=== PATIENT | male | born 1940 | race Caucasian/White ===

== ENCOUNTER → 2022-08-24 | Outpatient (CLI) | payer MEDICARE ==
--- NOTE | 2022-08-24 10:47 | FL ---
EXAMINATION TYPE: FL barium swallow DATE OF EXAM: 08/24/2022 10:32 AM COMPARISON: Chest radiograph from same day. CLINICAL INDICATION:Male, 81 years old with history of R221, R1310; TECHNIQUE: The procedure was explained and patient history elicited. All patient questions were ans wered prior to start of procedure. Multiple spot fluoroscopic images of the esophagus were obtained a fter the oral ingestion of effervescent crystals and liquid barium as the contrast agent. Fluoroscopic time:18 second Fluoroscopic images: 0 Radiographs taken: 60 DAP: 1150.71 FINDINGS: The esophagus demonstrates normal primary and secondary peristalsis. The esophageal mucosa is smooth without evidence of focal stricture, ulceration, or abnormal outpouching. No gastroesophageal reflux disease was identified. Tertiary contractions are present. Evaluation of the oropharynx demonstrate m ild retention of the vallecular retention and mild piriform sinus retention. IMPRESSION: 1. 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 2. Patient did not have symptoms during exam. 3. Mild vallecular and piriform sinus retention, consider evaluation with speech pathologist modified barium swallow.
--- NOTE | 2022-08-24 15:05 | CT ---
EXAMINATION TYPE: CT soft tissue neck w con DATE OF EXAM: 08/24/2022 COMPARISON: None HISTORY: Swelling, mass lump in neck CT DLP: 365.10 mGycm Automated exposure control for dose reduction was used. Contrast: None Technique: Axial images 3 mm thick sections. Reconstructed images in the coronal and sagittal plane. FINDINGS: Limited CT sections are obtained through the lung apices which appear clear. The subglottic airway ap pears normal. Thyroid appears atrophic. Vocal cord level is symmetrical. Hypopharynx appears normal. Tonsillar pillars appear normal. There is some limitation due to beam violette dening artifact at the level of the mandible. Parapharyngeal spaces as visualized are normal. Certified [employer] spaces are normal. Torus tubarius is slightly more full on the left compared to the right. Fossa Rosenmuller appears normal. Underlying mass not clearly evident. Consider direct visualization . Parotid glands as visualized appear normal. Submandibular glands are normal. Submental space is nor mal. There are a few shotty scattered lymph nodes present. Enlarged lymphadenopathy is not identified . Degenerative disc changes through the cervical spine. Temporomandibular junctions appear narrowed. Co nsider some degenerative change. Nasal bones and maxillary spine are intact. Mild mucosal thickening is within the inferior right maxillary sinus. Remaining paranasal sinuses within the field of view a re clear. Mastoid air cells appear clear. Right septal deviation right septal spurring is noted. IMPRESSION: 1. THERE APPEARS TO BE SOME MILD ASYMMETRY OF THE TORUS TUBARIUS AND FOSSA OF ROSENMULLER WITH FULLNE SS ON THE RIGHT COMPARED TO THE LEFT. CONSIDER DIRECT VISUALIZATION. 2. NO SUSPICIOUS MASS OR ABNORMALITY TO ACCOUNT FOR RIGHT NECK SWELLING.
== END | disposition home or self-care (01) ==
LOC: RADCTMAIN 08:25
PROVIDERS: ATTEND Otolaryngology
DX: K22.4 Dyskinesia of esophagus (principal); R06.09 Other forms of dyspnea; R13.10 Dysphagia, unspecified; R22.1 Localized swelling, mass and lump, neck
CPT/HCPCS: 82565; 84520; 74220; 70491; 36415; Q9967

== ENCOUNTER → 2022-09-08 | Day surgery (SDC) | payer MEDICARE ==
[2022-09-05 15:10] VITALS: BMI 25.0
--- NOTE | 2022-09-07 19:23 | HP ---
HISTORY AND PHYSICAL CHIEF COMPLAINT: Nasopharyngeal mass. HISTORY OF PRESENT ILLNESS: This patient is an 81-year-old male, who was recently seen in my office complaining of having chronic laryngitis. At the time that the patient was seen in the office, clinical examination was unremarkable. However, a CT scan of the neck and barium swallow showed evidence of a possible nasopharyngeal mass near the left eustachian tube. The patient is a nonsmoker. Because of this finding, it was recommended that the patient undergo a suspension microlaryngoscopy and examination of the nasopharynx under general anesthesia. PAST MEDICAL HISTORY: Reveals that he has no allergies to medications. His only current medication is Synthroid. REVIEW OF SYSTEMS: Positive for metabolic/endocrine system for hypothyroidism. Remainder of the review of systems is unremarkable. PAST SURGICAL HISTORY: His only previous surgery was for left breast cancer. PHYSICAL EXAMINATION: GENERAL: This patient is an 81-year-old male, who is alert and cooperative. HEENT: The patient is normocephalic. Tympanic membranes are normal. Middle ear spaces are free of any fluid or infection. Pupils are equal, round, and reactive to light and accommodation. Extraocular movements are within normal limits. Intranasal examination reveals severe septal deviation with compensatory hypertrophy of the inferior turbinates and mild amount of mucus on the mucous membrane draining down the posterior pharynx. Examination of oropharynx is unremarkable. Indirect laryngoscopy was essentially unremarkable. Palpation of the neck, cranial nerves 2 through 12, and remainder of the head and neck exam all within normal limits. CHEST/CARDIOVASCULAR: Both lung hu are clear to percussion and auscultation. The patient is in regular sinus rhythm. S1 and S2 are present without evidence of any murmurs, S3s, or S4s. Peripheral pulses are bilaterally symmetrical. ABDOMEN: There is no evidence of any masses, megaly, or tenderness. The abdomen is soft. SKIN: Unremarkable. MUSCULOSKELETAL/NEUROLOGICAL: Within normal limits. RECTAL: Deferred at this time because the patient has this done on a regular basis at his family physician's office. The remainder of the physical exam is unremarkable. IMPRESSION: Nasopharyngeal mass. PLAN: The patient is scheduled to undergo a suspension microlaryngoscopy with examination and biopsy of the nasopharynx under general anesthesia in a.m. Attention, nurses in the pre-surgical area: I have ordered for this patient to receive 1000 mg of Ofirmev IV to be given once an intravenous line has been established. I have also ordered for him to receive 2 g of Ancef IV to be given once an IV has been established. If the Pharmacy Department sends a different pre-surgical prophylactic antibiotic to the pre-surgical area for this patient, please cancel that order and return the medication to the Pharmacy Department. Also, make sure that the patient's account is credited appropriately. I have discussed the risks, benefits and alternative therapies for the above-mentioned procedure and for both sedation/analgesia as well as necessary blood product administration, if indicated, as they pertain to this patient. The patient has indicated his understanding and acceptance of the risks and procedures discussed. MMODL / IJN: [id number] /
[~2022-09-08] MED LIST: ACETAMINOPHEN IV (For NPO) 1,000 MG in EMPTY BAG 1 BAG IVPB ONE; DEXAMETHASONE SOD PHOSPHATE 4 MG/ML 1 ML VIAL IV ONE; DEXAMETHASONE SOD PHOSPHATE 4 MG/ML 1 ML VIAL ONE; HYDROmorphone 0.5 MG/0.5 ML SYRINGE IVP PRN; LACTATED RINGERS 1,000 ML IV SCH; LIDOCAINE 1% (10MG/ML) FOR IV START INTRADERMA PRN; LIDOCAINE 2% INJ 20 MG/ML (2 ML VIAL) ONE; MIDAZOLAM 2 MG/2 ML VIAL IV PRN; ONDANSETRON 4 MG/2 ML VIAL IVP ONE; PHENYLEPHRINE-0.9% NACL SYG 1,000 MCG/10 ML SYRINGE ONE; PROPOFOL 10 MG/ML 20 ML VIAL IV ONE; Pre Op ABX Message 1 EACH MISC MISCELLANE ONE; SUCCINYLCHOLINE CHLORIDE 200 MG/10 ML VIAL IV ONE; fentaNYL (PF) 50 MCG/ML 2 ML AMP ONE
[2022-09-08 12:02] VITALS: RESP 16
[2022-09-08 14:03] VITALS: TEMP 97
[2022-09-08 14:52] VITALS: BP 137/81; PULSE 77
--- NOTE | 2022-09-10 18:00 | OP ---
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 POSTOPERATIVE DIAGNOSES: 1. Chronic laryngitis. 2. Right true vocal cord lesion. 3. Negative exam of the nasopharynx. Final pathology is pending. ANESTHESIA: General. PROCEDURES PERFORMED: 1. Suspension microlaryngoscopy with multiple biopsies of lesion of the right true vocal cord. 2. Examination of the nasopharynx under general anesthesia. COMPLICATIONS: None. ESTIMATED BLOOD LOSS: Zero. DESCRIPTION OF PROCEDURE: The patient was placed on the operating table in supine position. After uneventful induction and endotracheal intubation, satisfactory general anesthesia was obtained. Next, the patient's head was draped in usual and customary fashion. Following this, the laryngoscope was introduced into the patient's oropharynx and the entire hypopharynx including the right and left piriform sinuses. Base of tongue, epiglottis, and vallecula were inspected and found to be free of any suspicious lesions. Next, the tip of the laryngoscope was placed at the laryngeal introitus and advanced. Next, the Lewy apparatus was attached to the handle of the laryngoscope and the laryngoscope was suspended on the patient's chest. Next, using the Zeiss operating microscope and under magnified visualization, one could see that there was a polypoid-like lesion along the patient's right true vocal cord. Therefore, multiple biopsies of this lesion of the right true vocal cord were taken and the specimen was sent in formalin for permanent sectioning. The patient was then given 10 mg of Decadron intraoperatively to reduce any postoperative edema. At this point, the procedure was terminated. There were no intraoperative complications. The patient tolerated the procedure well and was returned to recovery room in satisfactory condition. Final pathology is pending. MMODL / IJN: [id number] /
== END | disposition home or self-care (01) ==
LOC: OR 11:09
PROVIDERS: ATTEND Otolaryngology
DX: J37.0 Chronic laryngitis (principal); E03.9 Hypothyroidism, unspecified; M19.90 Unspecified osteoarthritis, unspecified site; Z85.3 Personal history of malignant neoplasm of breast; Z79.899 Other long term (current) drug therapy; Z98.82 Breast implant status; Z79.890 Hormone replacement therapy
CPT/HCPCS: 88305; 31536; J0330; J1100; J0690; J2405; J3010; J0131; J2370; J2704; J2001